=== PATIENT | female | born 1960 | race Caucasian/White ===

== ENCOUNTER → 2020-01-01 | Outpatient (CLI) | payer OTHER ==
[~2020-01-01] MED LIST: ACET325 PO; CODGUAEL PO; FLUSAL2505 INH; Florastor250 MG PO; GLIMEPIRIDE4 MG PO; HYDCHL25 PO; HYDR1TAB94 PO; LEVO750 PO; METF500 PO; METO25ER PO; MONT10T PO; NAPR500 PO; ONDA4ODT PO; PANT20 PO; PRED10 PO; ZESTRIL40 MG PO
== END | disposition home or self-care (01) ==
LOC: LAB 05:40 → LAB SHORT 05:40 → LAB FUT 09-17 09:30
DX: Z01.30 Encounter for examination of blood pressure without abnormal findings (principal)
CPT/HCPCS: 87015; 87116; 87206

== ENCOUNTER 2020-01-11 06:59 | Observation (INO) | payer OTHER ==
[~2020-01-11] VITALS: Ht 167.6 cm; Wt 120.6 kg
[~2020-01-11 06:59] MED LIST changes: -ACET325 PO; -Florastor250 MG PO; -HYDR1TAB94 PO; -LEVO750 PO; -METO25ER PO; -MONT10T PO; -NAPR500 PO; -ONDA4ODT PO; -PANT20 PO
[2020-01-11 07:21] LABS: BASOPHILS ABSOLUTE AUTO 0.03 K/mm3 (0.00-0.23); BASOPHILS PERCENT AUTO 1 % (0-2); EOSINOPHILS ABSOLUTE AUTO 0.19 K/mm3 (0.00-0.68); EOSINOPHILS PERCENT AUTO 3 % (0-6); Hematocrit 35.6 % (33.0-51.0); Hemoglobin 11.4 g/dL (11.5-16.0); IMMATURE GRAN ABSOLUTE AUTO 0.02 K/mm3 (0.00-0.10); IMMATURE GRAN PERCENT AUTO 0 % (0-1); LYMPHOCYTES ABSOLUTE AUTO 1.51 K/mm3 (0.84-5.20); LYMPHOCYTES PERCENT AUTO 24 % (21-46); MONOCYTES ABSOLUTE AUTO 0.42 K/mm3 (0.16-1.47); MONOCYTES PERCENT AUTO 7 % (4-13); Mean Corpuscular HGB 28.4 pg (26.0-34.0); Mean Corpuscular Volume 89 fL (80-100); Mean Platelet Volume 9.3 fL (9.1-12.4); NEUTROPHILS ABSOLUTE AUTO 4.26 K/mm3 (1.96-9.15); NEUTROPHILS PERCENT AUTO 66 % (41-73); Platelet Count 168 K/mm3 (150-400); RDW Coefficient Variation 15.4 % (11.7-14.2); RDW Standard Deviation 50.1 fL (35.1-46.3); Red Blood Cell Count 4.02 M/mm3 (3.80-5.20); White Blood Cell Count 6.43 K/mm3 (4.00-11.30)
[2020-01-11 07:44] LABS: Alanine Aminotransfer (ALT/SGP 52 U/L (12-78); Albumin, Blood 3.1 g/dL (3.4-5.0); Albumin/Globulin Ratio 0.9 (0.8-1.8); Alk Phos 74 U/L (50-136); Anion Gap 6 mmol/L (6-16); Aspartate Aminotrans (AST/SGOT 48 U/L (12-37); Bilirubin, Total 0.6 mg/dL (0.1-1.0); Blood Urea Nitrogen 25 mg/dL (8-24); CO2, Blood 27 mmol/L (21-32); Calcium, Blood 9.1 mg/dL (8.5-10.1); Chloride, Blood 106 mmol/L (98-108); Creatinine, Blood 0.66 mg/dL (0.40-1.00); Globulin, Blood 3.6 g/dL (2.2-4.0); Glomerular Filtration Rate >60 (60-); Glucose, Blood 139 mg/dL (70-99); Potassium, Blood 4.3 mmol/L (3.5-5.5); Sodium, Blood 139 mmol/L (136-145); Total Protein, Blood 6.7 g/dL (6.4-8.2)
--- NOTE | 2020-01-11 10:58 | NUR ---
PT SITTING ON EDGE OF BED STATED HER ABD PAIN IS MIN 1/10 BUT H/A PAIN IS 6/10 WILL CALL HOSP FOR DOSE OF TORADOL PT IS NPO GAVE HER GALLBLADDER BOOK ALSO HAS SWABS ORIENTED TO ROOM LAYOUT NO NAUSEA AT THIS TIME DID STATE SHE HAD SOME THIS AM WHEN SHE FIRST HAD THE PAIN
[2020-01-11 11:52] LABS: Source, Urine Clean Catch
[2020-01-11 11:56] LABS: Bilirubin, Urine Neg (Neg); Blood, Urine Neg (Neg); Glucose Qualitative, Urine Neg (Neg); Ketones, Urine Neg (Neg); Leukocyte Esterase, Urine 1+ (Neg); Nitrite, Urine Neg (Neg); Protein, Urine Neg (Neg); Urobilinogen, Urine NORM (Normal)
[2020-01-11 12:30] LABS: Appearance, Urine Clear (Clear); Color, Urine Yellow (P-Yellow)
[2020-01-11 12:31] LABS: Bacteria Few /hpf; Hyaline Casts 0-2 /lpf (0-2); Red Blood Cells, Urine 0-2 /hpf (0-2); Squamous Epithelial Cells Few /hpf (Few)
--- NOTE | 2020-01-11 13:00 | NUR ---
PT TRANSPORTED VIA [facility] TO DAY SURG
--- NOTE | 2020-01-11 16:55 | NUR ---
pt arrived back to room 232 from pacu s/p lap constantino no nausea pt wanting to eat 4 steri strips
--- NOTE | 2020-01-11 19:22 | NUR ---
OOB TO BATHROOM KPAD PLACED FOR BACK AND CALLED DR ESTHELA ANDERSON ORDERED FOR BACK PAIN
[2020-01-12 05:18] LABS: BASOPHILS ABSOLUTE AUTO 0.02 K/mm3 (0.00-0.23); BASOPHILS PERCENT AUTO 0 % (0-2); EOSINOPHILS PERCENT AUTO 0 % (0-6); Hematocrit 34.3 % (33.0-51.0); Hemoglobin 11.2 g/dL (11.5-16.0); IMMATURE GRAN ABSOLUTE AUTO 0.06 K/mm3 (0.00-0.10); IMMATURE GRAN PERCENT AUTO 1 % (0-1); LYMPHOCYTES ABSOLUTE AUTO 1.09 K/mm3 (0.84-5.20); LYMPHOCYTES PERCENT AUTO 11 % (21-46); MONOCYTES ABSOLUTE AUTO 0.46 K/mm3 (0.16-1.47); MONOCYTES PERCENT AUTO 4 % (4-13); Mean Corpuscular HGB 28.3 pg (26.0-34.0); Mean Corpuscular HGB Conc 32.7 g/dL (31.5-36.5); Mean Corpuscular Volume 87 fL (80-100); Mean Platelet Volume 9.5 fL (9.1-12.4); NEUTROPHILS PERCENT AUTO 84 % (41-73); Platelet Count 175 K/mm3 (150-400); RDW Coefficient Variation 15.2 % (11.7-14.2); RDW Standard Deviation 48.4 fL (35.1-46.3); Red Blood Cell Count 3.96 M/mm3 (3.80-5.20); White Blood Cell Count 10.43 K/mm3 (4.00-11.30)
[2020-01-12 05:45] LABS: Alanine Aminotransfer (ALT/SGP 54 U/L (12-78); Albumin, Blood 2.9 g/dL (3.4-5.0); Albumin/Globulin Ratio 0.8 (0.8-1.8); Alk Phos 62 U/L (50-136); Anion Gap 8 mmol/L (6-16); Aspartate Aminotrans (AST/SGOT 43 U/L (12-37); Bilirubin, Total 0.6 mg/dL (0.1-1.0); Blood Urea Nitrogen 34 mg/dL (8-24); Bun/Creatinine Ratio 49.6 (12.0-20.0); CO2, Blood 22 mmol/L (21-32); Calcium, Blood 8.9 mg/dL (8.5-10.1); Chloride, Blood 105 mmol/L (98-108); Creatinine, Blood 0.69 mg/dL (0.40-1.00); Globulin, Blood 3.5 g/dL (2.2-4.0); Glomerular Filtration Rate >60 (60-); Glucose, Blood 298 mg/dL (70-99); Potassium, Blood 5.3 mmol/L (3.5-5.5); Sodium, Blood 135 mmol/L (136-145); Total Protein, Blood 6.4 g/dL (6.4-8.2)
--- NOTE | 2020-01-12 08:02 | NUR ---
SUMMARY PT TOLERATING PO DIET.VERB PAIN ADEQUATELY CONTROLLED. VOIDING WITHOUT DIFF. NO ACUTE CHANGES.
--- NOTE | 2020-01-12 10:10 | NUR ---
ITCHING ALL OVER APPROXIMATELY 20 MIN AFTER STARTING CEFTRIAXONE PER ORDERS, PT CALLED TO REPORT "ITCHING ALL OVER". STOPPED ABX AND FLUSHED IV. DO NOT SEE ANY SIGNS OF RASH AT THIS TIME. NO REPORTS OF SOB. NOTIFIED DR HARPER WHO GAVE TELEPHONE ORDER TO DC CEFTRIAXONE. CALL LIGHT IN REACH OF PT.
[2020-01-12] MEDS ORDERED: ACET325 PO (10:58)
[2020-01-12] MEDS ORDERED: HYDR1TAB94 PO (11:00)
[2020-01-12] MEDS ORDERED: LEVO750 PO (11:00)
[2020-01-12] MEDS ORDERED: METO25ER PO (11:08)
[2020-01-12] MEDS ORDERED: MONT10T PO (11:10)
[2020-01-12] MEDS ORDERED: ONDA4ODT PO (11:11)
[2020-01-12] MEDS ORDERED: PANT20 PO (11:12)
[2020-01-12] MEDS ORDERED: Florastor250 MG PO (11:13)
[2020-01-12] MEDS ORDERED: NAPR500 PO (11:15)
--- NOTE | 2020-01-12 12:17 | NUR ---
DISCHARGED PT REPORTS ITCHING RESOLVING. FAXED PRESCRIPTIONS TO [facility] PER PT REQUEST. REVIEWED DC PAPERWORK W/PT; VERBALIZED UNDERSTANDING. SIGNED DC PAPERWORK. DC'D IVS, CATHETERS INTACT. PT LEFT UNIT IN WC W/POSSESSIONS AND DC PAPERWORK IN HAND ACCOMPANIED BY S.O.
== END 2020-01-12 12:05 | disposition home or self-care (01) ==
LOC: ER 06:59 → SURS 07:00 → ER 09:22 → SURS 09:58
PROVIDERS: Emergency Medicine; Surgery; ADMIT Internal Medicine
PROC: 0FT44ZZ Resection of Gallbladder, Percutaneous Endoscopic Approach (ICD-10-PCS; principal; 2020-01-11 12:45)
DX: K81.0 Acute cholecystitis (principal); E11.9 Type 2 diabetes mellitus without complications; I10 Essential (primary) hypertension; K21.9 Gastro-esophageal reflux disease without esophagitis; E66.01 Morbid (severe) obesity due to excess calories; J45.909 Unspecified asthma, uncomplicated; G25.81 Restless legs syndrome; G89.29 Other chronic pain; E78.5 Hyperlipidemia, unspecified; G47.00 Insomnia, unspecified; G47.33 Obstructive sleep apnea (adult) (pediatric); M54.9 Dorsalgia, unspecified; Z79.2 Long term (current) use of antibiotics; Z79.51 Long term (current) use of inhaled steroids; Z79.84 Long term (current) use of oral hypoglycemic drugs; Z79.899 Other long term (current) drug therapy; Z87.891 Personal history of nicotine dependence; Z90.10 Acquired absence of unspecified breast and nipple; Z90.710 Acquired absence of both cervix and uterus; Z91.013 Allergy to seafood; Z91.040 Latex allergy status; Z91.048 Other nonmedicinal substance allergy status
CPT/HCPCS: 76705; 80053; 81001; 82947; 83690; 85025; 87086; 88304; 94640; 94760; 96365; 96372; 96376; 99285-25; A9270-GY; C9113; G0378; J0696; J1100; J1644; J1885; J2405; J2704; J3010; J7030; J7120

== ENCOUNTER → 2021-02-28 | Outpatient (CLI) | payer OTHER ==
[~2021-02-28] MED LIST changes: +ACET325 PO; +Florastor250 MG PO; +HYDR1TAB94 PO; +LEVO750 PO; +METO25ER PO; +MONT10T PO; +NAPR500 PO; +ONDA4ODT PO; +PANT20 PO
[2021-02-28 11:47] LABS: BASOPHILS ABSOLUTE AUTO 0.03 K/mm3 (0.00-0.23); BASOPHILS PERCENT AUTO 0 % (0-2); EOSINOPHILS ABSOLUTE AUTO 0.04 K/mm3 (0.00-0.68); EOSINOPHILS PERCENT AUTO 0 % (0-6); Hematocrit 36.4 % (33.0-51.0); Hemoglobin 12.3 g/dL (11.5-16.0); IMMATURE GRAN ABSOLUTE AUTO 0.04 K/mm3 (0.00-0.10); IMMATURE GRAN PERCENT AUTO 0 % (0-1); LYMPHOCYTES PERCENT AUTO 19 % (21-46); MONOCYTES ABSOLUTE AUTO 0.92 K/mm3 (0.16-1.47); MONOCYTES PERCENT AUTO 10 % (4-13); Mean Corpuscular HGB 29.1 pg (26.0-34.0); Mean Corpuscular HGB Conc 33.8 g/dL (31.5-36.5); Mean Corpuscular Volume 86 fL (80-100); Mean Platelet Volume 9.1 fL (9.1-12.4); NEUTROPHILS ABSOLUTE AUTO 6.62 K/mm3 (1.96-9.15); NEUTROPHILS PERCENT AUTO 70 % (41-73); Platelet Count 150 K/mm3 (150-400); RDW Coefficient Variation 14.9 % (11.7-14.2); RDW Standard Deviation 46.6 fL (35.1-46.3); Red Blood Cell Count 4.23 M/mm3 (3.80-5.20); White Blood Cell Count 9.45 K/mm3 (4.00-11.30)
[2021-02-28 11:57] LABS: Alanine Aminotransfer (ALT/SGP 58 U/L (12-78); Albumin, Blood 3.1 g/dL (3.4-5.0); Albumin/Globulin Ratio 0.7 (0.8-1.8); Alk Phos 106 U/L (40-126); Anion Gap 12 mmol/L (6-16); Aspartate Aminotrans (AST/SGOT 46 U/L (12-37); Blood Urea Nitrogen 17 mg/dL (8-24); Bun/Creatinine Ratio 19.8 (12.0-20.0); CO2, Blood 24 mmol/L (21-32); Calcium, Blood 8.7 mg/dL (8.5-10.1); Chloride, Blood 98 mmol/L (98-108); Creatinine, Blood 0.86 mg/dL (0.40-1.00); Globulin, Blood 4.3 g/dL (2.2-4.0); Glomerular Filtration Rate >60 (60-); Glucose, Blood 155 mg/dL (70-99); Potassium, Blood 3.9 mmol/L (3.5-5.5); Sodium, Blood 134 mmol/L (136-145); Total Protein, Blood 7.4 g/dL (6.4-8.2)
== END | disposition home or self-care (01) ==
LOC: LAB EV 11:40 → LAB SHORT 11:40
PROVIDERS: Physician Assistant Medical
DX: L03.211 Cellulitis of face (principal)
CPT/HCPCS: 80053; 85025

== ENCOUNTER → 2022-11-19 | Outpatient (CLI) | payer OTHER | END | disposition home or self-care (01) | LOC: LAB SHORT 17:44 → LAB 17:44 | DX: L02.211 Cutaneous abscess of abdominal wall (principal) | CPT/HCPCS: 87070; 87075; 87147; 87205 ==

== ENCOUNTER 2023-09-15 15:22 | Emergency (ER) | payer MEDICARE, OTHER ==
[~2023-09-15] VITALS: Ht 162.6 cm; Wt 127.0 kg
[2023-09-15 15:27] VITALS: BP 181/83
[2023-09-15] MEDS ORDERED: LIDOCAINE1 EACH TOP (17:47)
== END 2023-09-15 17:59 | disposition home or self-care (01) ==
LOC: ER 15:22
DX: R22.32 Localized swelling, mass and lump, left upper limb (principal); Z91.041 Radiographic dye allergy status; Z91.013 Allergy to seafood; Z88.8 Allergy status to other drugs, medicaments and biological substances; Z79.899 Other long term (current) drug therapy; Z79.84 Long term (current) use of oral hypoglycemic drugs; E11.9 Type 2 diabetes mellitus without complications; I10 Essential (primary) hypertension; E78.5 Hyperlipidemia, unspecified; J45.909 Unspecified asthma, uncomplicated
CPT/HCPCS: 93971; 96372; 99283-25; A9270; J1885

== ENCOUNTER 2023-10-21 22:38 | Inpatient (IN) | payer MEDICARE, OTHER ==
[~2023-10-21] VITALS: Ht 162.6 cm; Wt 126.4 kg
[~2023-10-21 22:38] MED LIST changes: +LIDOCAINE1 EACH TOP
[2023-10-21 23:21] LABS: BASOPHILS ABSOLUTE AUTO 0.03 K/mm3 (0.00-0.23); BASOPHILS PERCENT AUTO 1 % (0-2); EOSINOPHILS ABSOLUTE AUTO 0.19 K/mm3 (0.00-0.68); EOSINOPHILS PERCENT AUTO 3 % (0-6); Hematocrit 30.3 % (33.0-51.0); IMMATURE GRAN ABSOLUTE AUTO 0.03 K/mm3 (0.00-0.10); IMMATURE GRAN PERCENT AUTO 1 % (0-1); LYMPHOCYTES ABSOLUTE AUTO 1.54 K/mm3 (0.84-5.20); LYMPHOCYTES PERCENT AUTO 25 % (21-46); MONOCYTES ABSOLUTE AUTO 0.47 K/mm3 (0.16-1.47); MONOCYTES PERCENT AUTO 8 % (4-13); Mean Corpuscular Volume 88 fL (80-100); Mean Platelet Volume 9.4 fL (9.1-12.4); NEUTROPHILS ABSOLUTE AUTO 3.81 K/mm3 (1.96-9.15); NEUTROPHILS PERCENT AUTO 63 % (41-73); Platelet Count 114 K/mm3 (150-400); RDW Coefficient Variation 16.1 % (11.7-14.2); RDW Standard Deviation 51.5 fL (35.1-46.3); Red Blood Cell Count 3.45 M/mm3 (3.80-5.20); White Blood Cell Count 6.07 K/mm3 (4.00-11.30)
[2023-10-21 23:49] LABS: Alanine Aminotransfer (ALT/SGP 52 U/L (12-78); Albumin, Blood 2.9 g/dL (3.4-5.0); Albumin/Globulin Ratio 0.8 (0.8-1.8); Alk Phos 79 U/L (50-136); Anion Gap 7 mmol/L (6-16); Aspartate Aminotrans (AST/SGOT 76 U/L (12-37); Bilirubin, Total 0.5 mg/dL (0.1-1.0); Blood Urea Nitrogen 19 mg/dL (8-24); Bun/Creatinine Ratio 25.9 (12.0-20.0); CO2, Blood 25 mmol/L (21-32); Calcium, Blood 8.9 mg/dL (8.5-10.1); Chloride, Blood 107 mmol/L (98-108); Creatinine, Blood 0.74 mg/dL (0.40-1.00); Ethanol (Alcohol), Blood, Med <3 mg/dL; Globulin, Blood 3.7 g/dL (2.2-4.0); Glomerular Filtration Rate 90 (60-); Glucose, Blood 220 mg/dL (70-99); Potassium, Blood 4.2 mmol/L (3.5-5.5); Sodium, Blood 139 mmol/L (136-145); Total Protein, Blood 6.6 g/dL (6.4-8.2)
[2023-10-22 00:34] LABS: International Normalized Ratio 1.09; Prothrombin Time Results 11.4 Sec (9.7-11.5)
[2023-10-22 03:29] VITALS: BP 193/79
[2023-10-22 05:53] LABS: BASOPHILS ABSOLUTE AUTO 0.03 K/mm3 (0.00-0.23); BASOPHILS PERCENT AUTO 0 % (0-2); EOSINOPHILS ABSOLUTE AUTO 0.11 K/mm3 (0.00-0.68); EOSINOPHILS PERCENT AUTO 2 % (0-6); Hematocrit 27.8 % (33.0-51.0); Hemoglobin 9.1 g/dL (11.5-16.0); IMMATURE GRAN ABSOLUTE AUTO 0.04 K/mm3 (0.00-0.10); IMMATURE GRAN PERCENT AUTO 1 % (0-1); LYMPHOCYTES ABSOLUTE AUTO 1.49 K/mm3 (0.84-5.20); LYMPHOCYTES PERCENT AUTO 22 % (21-46); MONOCYTES ABSOLUTE AUTO 0.64 K/mm3 (0.16-1.47); MONOCYTES PERCENT AUTO 9 % (4-13); Mean Corpuscular HGB 28.8 pg (26.0-34.0); Mean Corpuscular HGB Conc 32.7 g/dL (31.5-36.5); Mean Corpuscular Volume 88 fL (80-100); Mean Platelet Volume 9.4 fL (9.1-12.4); NEUTROPHILS ABSOLUTE AUTO 4.53 K/mm3 (1.96-9.15); NEUTROPHILS PERCENT AUTO 66 % (41-73); Platelet Count 112 K/mm3 (150-400); RDW Standard Deviation 50.4 fL (35.1-46.3); Red Blood Cell Count 3.16 M/mm3 (3.80-5.20); White Blood Cell Count 6.84 K/mm3 (4.00-11.30)
--- NOTE | 2023-10-22 06:12 | NUR ---
SHIFT SUMMARY PT ARRIVED ON THE UNIT WITH BILATERAL HUMERUS FX'S RESULTING FROM A GLF FROM A DOG GATE. PT ALSO ARRIVED TO THE UNIT WITH NO WORKING IV. KUMAR GUTIERREZ WAS ABLE TO GET ONE STARTED IN THE PT'S RIGHT WRIST. PT IS DIABETIC AND HAS AN EXTENSIVE MED LIST, OF WHICH WILL NEED TO BE UPDATED. PT WILL NEED PT AND OT EVALS TO ASSIST WITH REHAB OF BASIC ADL'S. BED IS IN LOWEST POSITION, CALL LIGHT IS WITHIN REACH.
[2023-10-22 06:37] LABS: Albumin, Blood 2.9 g/dL (3.4-5.0); Albumin/Globulin Ratio 0.9 (0.8-1.8); Bilirubin, Total 0.6 mg/dL (0.1-1.0); Bun/Creatinine Ratio 27.8 (12.0-20.0); Calcium, Blood 8.9 mg/dL (8.5-10.1); Creatinine, Blood 0.76 mg/dL (0.40-1.00); Globulin, Blood 3.3 g/dL (2.2-4.0); Potassium, Blood 4.1 mmol/L (3.5-5.5); Total Protein, Blood 6.2 g/dL (6.4-8.2)
[2023-10-22 07:13] VITALS: BP 180/81
[2023-10-22] MEDS ORDERED: Ropinirole HCl1 MG PO (07:13)
[2023-10-22] MEDS ORDERED: MELO7.5 PO (07:14)
[2023-10-22] MEDS ORDERED: GLIP10 PO (07:14)
[2023-10-22] MEDS ORDERED: METO50ER PO (07:25)
[2023-10-22] MEDS ORDERED: Doxycycline Mo100 M1 PO (07:27)
[2023-10-22] MEDS ORDERED: LISI20 PO (07:27)
[2023-10-22] MEDS ORDERED: TRAM50 PO (07:28)
[2023-10-22] MEDS ORDERED: FENO67 PO (07:28)
[2023-10-22] MEDS ORDERED: FURO20 PO (07:31)
[2023-10-22] MEDS ORDERED: SITA100T2 PO (07:32)
[2023-10-22] MEDS ORDERED: GABA300 PO (07:32)
[2023-10-22 14:22] VITALS: BP 135/63
--- NOTE | 2023-10-22 19:15 | NUR ---
SHIFT SUMMARY S/P BILATERAL HUMORAL FX, A/O X4, VSS, TOLERATING PO BUT UNALE TO FEED HERSELF, PUREWICK IN PLACE, PT VOIDED EARLY THIS SHIFT BUT NOTHING SINCE, DISCUSSED RETENTION AND HAVING TO STRAIGHT CATH IF SHE IS UNABLE TO VOID. PT REPORTS WANTING TO TRY AND WAS SET UP A BIT MORE IN WHICH SHE REPORTS SHOULD MAKE IT EASIER FOR HER TO VOID. PAIN MANAGED PER EMAR. NO ACUTE EVENTS THIS SHIFT. CALL LIGHT IN REACH.
[2023-10-22 20:34] VITALS: BP 146/81
[2023-10-23 04:05] LABS: BASOPHILS ABSOLUTE AUTO 0.03 K/mm3 (0.00-0.23); BASOPHILS PERCENT AUTO 1 % (0-2); EOSINOPHILS ABSOLUTE AUTO 0.26 K/mm3 (0.00-0.68); EOSINOPHILS PERCENT AUTO 5 % (0-6); Hematocrit 25.6 % (33.0-51.0); Hemoglobin 8.4 g/dL (11.5-16.0); IMMATURE GRAN ABSOLUTE AUTO 0.03 K/mm3 (0.00-0.10); IMMATURE GRAN PERCENT AUTO 1 % (0-1); LYMPHOCYTES ABSOLUTE AUTO 1.67 K/mm3 (0.84-5.20); LYMPHOCYTES PERCENT AUTO 31 % (21-46); MONOCYTES ABSOLUTE AUTO 0.57 K/mm3 (0.16-1.47); MONOCYTES PERCENT AUTO 11 % (4-13); Mean Corpuscular HGB 28.9 pg (26.0-34.0); Mean Corpuscular HGB Conc 32.8 g/dL (31.5-36.5); Mean Corpuscular Volume 88 fL (80-100); Mean Platelet Volume 9.5 fL (9.1-12.4); NEUTROPHILS ABSOLUTE AUTO 2.86 K/mm3 (1.96-9.15); NEUTROPHILS PERCENT AUTO 53 % (41-73); Platelet Count 113 K/mm3 (150-400); RDW Coefficient Variation 16.5 % (11.7-14.2); RDW Standard Deviation 52.9 fL (35.1-46.3); Red Blood Cell Count 2.91 M/mm3 (3.80-5.20); White Blood Cell Count 5.42 K/mm3 (4.00-11.30)
[2023-10-23 04:36] LABS: Bun/Creatinine Ratio 31.8 (12.0-20.0); Calcium, Blood 8.6 mg/dL (8.5-10.1); Creatinine, Blood 1.07 mg/dL (0.40-1.00); Potassium, Blood 4.2 mmol/L (3.5-5.5)
--- NOTE | 2023-10-23 06:37 | NUR ---
SHIFT SUMMARY VSS. PT SLEPT WELL T/O THE NIGHT. OBTAINED IV FLUIDS D/T PT BEING UNABLE TO DRINK WATER INDEPENDENTLY. PT NOT UP TO RECLINER WITH DRINKS SET UP. TRANSFER WITH MIN ASSIST, 2P FOR SAFETY. ONE LARGE VOID NOTED, DARK FANI URINE NOTED. PT MEDICATED FOR PAIN ONCE WITH TORADOL AND FENT. PT REPORTS SHE DOES NOT WANT TO TAKE ANY MORE NARCOTICS D/T HOW ITCHY SHE GETS. NO ACUTE EVENTS NOTED, OTHERWISE. PLAN TO AWAIT ORTHO ON TUESDAY
[2023-10-23 07:23] VITALS: BP 111/62
[2023-10-23 14:11] VITALS: BP 124/93
--- NOTE | 2023-10-23 19:18 | NUR ---
SHIFT SUMMARY S/P BILATERAL UPPER ARM FX, A/X4, VSS, TOLERATING PO, ABLE TO GET UP TO CHAIR AND USE BSC, PAIN MANAGED PER EMAR. NO ACUTE EVENTS THIS SHIFT, CALL LIGHT IN REACH.
[2023-10-23 20:31] VITALS: BP 123/63
[2023-10-24 05:21] VITALS: BP 114/53
[2023-10-24 05:58] LABS: Hematocrit 26.3 % (33.0-51.0); Hemoglobin 8.5 g/dL (11.5-16.0)
[2023-10-24 06:26] LABS: Bun/Creatinine Ratio 36.4 (12.0-20.0); Calcium, Blood 8.9 mg/dL (8.5-10.1); Creatinine, Blood 1.07 mg/dL (0.40-1.00); Potassium, Blood 4.7 mmol/L (3.5-5.5)
[2023-10-24 07:06] VITALS: BP 109/83
[2023-10-24 09:20] VITALS: BP 103/72
[2023-10-24 14:33] VITALS: BP 134/59
--- NOTE | 2023-10-24 19:03 | NUR ---
SHIFT SUMMARY PT A&OX4, VSS/RA/CBG AC-HS, VOIDING, AMB SBA, IV SL, PAIN MANAGED, BUE HUMERUS FX IN SPLINTS AND SLINGS/ELEVATED ON PILLOWS, UP TO CHAIR T/O SHIFT. WILL REPORT TO ONCOMING NOC RN.
[2023-10-24 19:21] VITALS: BP 147/72
[2023-10-25 04:10] LABS: Hematocrit 23.5 % (33.0-51.0); Hemoglobin 7.7 g/dL (11.5-16.0)
[2023-10-25 04:29] LABS: Calcium, Blood 8.6 mg/dL (8.5-10.1); Creatinine, Blood 0.83 mg/dL (0.40-1.00); Potassium, Blood 4.7 mmol/L (3.5-5.5)
[2023-10-25 05:33] VITALS: BP 124/61
--- NOTE | 2023-10-25 06:56 | NUR ---
SHIFT SUMMARY NO ACUTE CHANGES THROUGH THE NIGHT, PT IS A&O X4, ON RA, VSS, TOLERATING PO INTAKE, VOIDING WNL, BUE ELEVATED ON PILLOWS, ARM SLINGS IN PLACE, DRSG'S INTACT, CIRC WNL, CALL LIGHT IN REACH
[2023-10-25 07:24] VITALS: BP 130/55
[2023-10-25 11:23] LABS: Hematocrit 23.2 % (33.0-51.0); Hemoglobin 7.7 g/dL (11.5-16.0)
--- NOTE | 2023-10-25 14:10 | NUR ---
Pt. is awake in bed when she welcomes my visit. Spouse is present at bedside. Pt. is unsettled by her discharge plan. Listen with empathy and a calming presence. Pt. displayed evidence of frutration. Seek to nomralize the pt. experience and consider matters of carol and belief. Prayed with Pt. Pt. 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
[2023-10-25 15:15] VITALS: BP 135/64
--- NOTE | 2023-10-25 16:00 | NUR ---
TELEPHONE CALL TO DR LECHUGA R/T NO DVT PROPH AND NO BOWEL CARE ORDERED FOR PT. DR SAID SHE WILL REVIEW IT AND PUT IN ORDERS.
--- NOTE | 2023-10-25 16:53 | NUR ---
SHIFT SUMMARY PT A&OX4, VSS/RA/CBG AC-HS, VOIDING/BSC, FRANKI PO/FULL MEAL ASSIST, AMB SBA/GB, IV SL, PAIN MANAGED, BUE HUMERUS FX IN SPLINTS AND SLINGS/ELEVATED ON PILLOWS, UP TO CHAIR. WILL REPORT TO ONCOMING NOC RN.
[2023-10-25 19:01] LABS: Hematocrit 24.2 % (33.0-51.0); Hemoglobin 7.9 g/dL (11.5-16.0)
[2023-10-25 19:43] VITALS: BP 128/76
--- NOTE | 2023-10-26 04:16 | NUR ---
SHIFT SUMMARY NO ACUTE CHANGES THIS SHIFT. ASSISTED PT WITH REPOSITIONING PRN. BUE ELEVATED ON PILLOWS AND REMAIN IN SLINGS. PT ABLE TO USE HER FINGERS AND HANDS MINIMALLY. ULTRAM FOR PAIN MANAGEMENT. USES CALL LIGHT APPROPRIATELY. PLANNING TO DC HOME TODAY WITH HOME HEALTH.
[2023-10-26 05:19] VITALS: BP 152/70
[2023-10-26 07:40] LABS: BASOPHILS ABSOLUTE AUTO 0.03 K/mm3 (0.00-0.23); BASOPHILS PERCENT AUTO 1 % (0-2); EOSINOPHILS ABSOLUTE AUTO 0.15 K/mm3 (0.00-0.68); EOSINOPHILS PERCENT AUTO 3 % (0-6); Hemoglobin 7.8 g/dL (11.5-16.0); IMMATURE GRAN ABSOLUTE AUTO 0.03 K/mm3 (0.00-0.10); IMMATURE GRAN PERCENT AUTO 1 % (0-1); LYMPHOCYTES ABSOLUTE AUTO 1.66 K/mm3 (0.84-5.20); LYMPHOCYTES PERCENT AUTO 28 % (21-46); MONOCYTES ABSOLUTE AUTO 0.63 K/mm3 (0.16-1.47); MONOCYTES PERCENT AUTO 11 % (4-13); Mean Corpuscular HGB 28.5 pg (26.0-34.0); Mean Corpuscular HGB Conc 32.5 g/dL (31.5-36.5); Mean Corpuscular Volume 88 fL (80-100); Mean Platelet Volume 9.8 fL (9.1-12.4); NEUTROPHILS ABSOLUTE AUTO 3.45 K/mm3 (1.96-9.15); NEUTROPHILS PERCENT AUTO 58 % (41-73); Platelet Count 136 K/mm3 (150-400); RDW Coefficient Variation 16.5 % (11.7-14.2); RDW Standard Deviation 52.1 fL (35.1-46.3); Red Blood Cell Count 2.74 M/mm3 (3.80-5.20); White Blood Cell Count 5.95 K/mm3 (4.00-11.30)
[2023-10-26 07:46] VITALS: BP 143/58
--- NOTE | 2023-10-26 14:10 | NUR ---
DISCHARGE NOTE: PATIENT IS GOING TO BE TRANSPORTED TO [facility] AT 1430. THIS NURSE JUST GAVE REPORT TO GERMAN THOMPSON FROM [facility]. AFTER REPORT GERMAN THOMPSON HAD NO FURTHER QUESTIONS AT THIS TIME. PAIN IS MANAGED WITH PO PAIN MEDS. BOTH ARMS HAVE A SPLINT WITH PERRY WRAP AND ARE IN SLINGS. SHE DENIES NUMBNESS OR TINGLING IN ALL EXTREMITIES. SHE IS A SBA WITH GAIT BELT FOR AMBULATION. SHE IS TOLERATING PO INTAKE AND IS VOIDING/PASSING GAS. PATIENT HAS HER PERSONAL ITEMS IN THE ROOM GATHERED. AWAITING FOR TRANSPORT TO ARRIVE TO TAKE HER TO [facility].
[2023-10-26 14:22] VITALS: BP 171/82
--- NOTE | 2023-10-26 14:42 | NUR ---
TRANSPORT ARRIVED AND TOOK HER DOWN IN THE WHEELCHAIR TO [facility]. PATIENT HAS ALL OF HER PERSONAL BELONGINGS WITH HER.
== END 2023-10-26 14:39 | disposition home or self-care (01) | DRG 563 ==
LOC: ER 22:38 → SURS 22:39 → MEDS 22:39 → SURS 10-22 02:48
PROVIDERS: Family Medicine; Student in an Organized Health Care Education/Training Program; ADMIT Internal Medicine
DX: S42.352A Displaced comminuted fracture of shaft of humerus, left arm, initial encounter for closed fracture (principal); S42.351A Displaced comminuted fracture of shaft of humerus, right arm, initial encounter for closed fracture; N17.9 Acute kidney failure, unspecified; Z68.42 Body mass index [BMI] 45.0-49.9, adult; W01.0XXA Fall on same level from slipping, tripping and stumbling without subsequent striking against object, initial encounter; D64.9 Anemia, unspecified; E11.9 Type 2 diabetes mellitus without complications; E66.01 Morbid (severe) obesity due to excess calories; I10 Essential (primary) hypertension; E78.5 Hyperlipidemia, unspecified; I16.0 Hypertensive urgency; J45.909 Unspecified asthma, uncomplicated; G25.81 Restless legs syndrome; R60.0 Localized edema; Z88.8 Allergy status to other drugs, medicaments and biological substances; Z91.040 Latex allergy status; Z79.84 Long term (current) use of oral hypoglycemic drugs; Z79.51 Long term (current) use of inhaled steroids; Z87.891 Personal history of nicotine dependence
CPT/HCPCS: 29105; 29125; 36415; 73020; 73060; 73562-LT; 80048; 80053; 82550; 82947; 83690; 85014; 85018; 85025; 85610; 94660; 94762; 96374; 96375; 96376; 97110; 97163; 97166; 97530; 99285-25; A9270; J0360; J1650; J1885; J2405; J3010; J7030; J7120

== ENCOUNTER → 2024-05-16 | Outpatient (CLI) | payer MEDICARE, OTHER ==
[~2024-05-16] MED LIST changes: +Doxycycline Mo100 M1 PO; +FENO67 PO; +FURO20 PO; +GABA300 PO; +GLIP10 PO; +LISI20 PO; +MELO7.5 PO; +METO50ER PO; +Ropinirole HCl1 MG PO; +SITA100T2 PO; +TRAM50 PO
[2024-05-16 20:00] LABS: Percent Saturation 27.9 % (15.0-50.0)
== END | disposition home or self-care (01) ==
LOC: LAB SHORT 12:21 → LAB 12:21
PROVIDERS: Internal Medicine Hematology & Oncology
DX: E61.1 Iron deficiency (principal)
CPT/HCPCS: 82728; 83540; 83550

== ENCOUNTER → 2024-09-05 | Outpatient (CLI) | payer MEDICARE, OTHER ==
[2024-09-05 19:03] LABS: BASOPHILS ABSOLUTE AUTO 0.04 K/mm3 (0.00-0.23); BASOPHILS PERCENT AUTO 1 % (0-2); EOSINOPHILS ABSOLUTE AUTO 0.13 K/mm3 (0.00-0.68); EOSINOPHILS PERCENT AUTO 2 % (0-6); Hematocrit 34.7 % (33.0-51.0); Hemoglobin 11.6 g/dL (11.5-16.0); IMMATURE GRAN ABSOLUTE AUTO 0.07 K/mm3 (0.00-0.10); IMMATURE GRAN PERCENT AUTO 1 % (0-1); LYMPHOCYTES ABSOLUTE AUTO 1.28 K/mm3 (0.84-5.20); LYMPHOCYTES PERCENT AUTO 20 % (21-46); MONOCYTES ABSOLUTE AUTO 0.55 K/mm3 (0.16-1.47); MONOCYTES PERCENT AUTO 9 % (4-13); Mean Corpuscular HGB 30.9 pg (26.0-34.0); Mean Corpuscular HGB Conc 33.4 g/dL (31.5-36.5); Mean Corpuscular Volume 93 fL (80-100); Mean Platelet Volume 11.1 fL (9.1-12.4); NEUTROPHILS ABSOLUTE AUTO 4.24 K/mm3 (1.96-9.15); NEUTROPHILS PERCENT AUTO 67 % (41-73); Platelet Count 116 K/mm3 (150-400); RDW Coefficient Variation 14.6 % (11.7-14.2); RDW Standard Deviation 49.3 fL (35.1-46.3); Red Blood Cell Count 3.75 M/mm3 (3.80-5.20); White Blood Cell Count 6.31 K/mm3 (4.00-11.30)
== END ==
LOC: LAB 17:09 → LAB SHORT 17:09
PROVIDERS: Internal Medicine Hematology & Oncology
DX: E61.1 Iron deficiency (principal)
CPT/HCPCS: 85025

== ENCOUNTER → 2025-03-19 | Outpatient (CLI) | payer MEDICARE, OTHER | END | disposition home or self-care (01) | LOC: LAB SHORT 18:46 → LAB 18:46 | DX: R30.0 Dysuria (principal) | CPT/HCPCS: 87086 ==